=== PATIENT | male | born 1995 | race Caucasian/White ===

== ENCOUNTER → 2020-04-28 10:50 | Outpatient (CLI) | payer BC, SELFPAY ==
--- NOTE | ~2020-04-28 | MR_ITS ---
EXAMINATION: MR knee LT wo con DATE: 04/28/2020 11:33 INDICATION: Medial left knee pain. TECHNIQUE: Magnetic resonance imaging (MRI) of the left knee was performed without intravenous contra st. Sequences included axial PD-weighted FS FSE, coronal PD-weighted FSE and PD-weighted FS FSE, sagi ttal PD-weighted FSE, and sagittal T2-weighted FS FSE. COMPARISON: Left knee radiographs 04/23/2020 FINDINGS: Medial compartment: Medial meniscus is normal. Medial compartment cartilage is normal. Lateral compartment: Lateral meniscus is normal. There is deep partial thickness cartilage loss of tibial condyle involvin g the central articular surface. There is shallow partial-thickness cartilage loss of femoral condyle posteriorly. There is a focus of susceptibility artifact adjacent to the posterior femoral cartilage without correlate on the radiographs. Patellofemoral compartment: The patellar cartilage is normal. Trochlear cartilage is normal. Ligaments and tendons: Anterior and posterior cruciate ligaments are normal. Medial collateral ligament and lateral collater al ligament complex are normal. There is mild patellar tendinopathy. Fluid: There is a small knee joint effusion. IMPRESSION: 1. Moderate chondrosis of lateral compartment. 2. Small knee joint effusion. Reviewed, dictated and finalized at location A. T MAKER
== END ==
PROVIDERS: PCP Family Medicine; Visit Provider Nurse Practitioner Family
DX: M25.462 Effusion, left knee (principal); M24.10 Other articular cartilage disorders, unspecified site
CPT/HCPCS: 73721

== ENCOUNTER 2020-10-28 22:55 | Emergency (ER) | payer SELFPAY ==
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
[2020-10-28 22:58] VITALS: BP 117/64; PULSE 121; RESP 18; TEMP 36.7; O2SAT 96
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
--- NOTE | 2020-10-28 23:34 | PC.NURSE ---
short leg ocl splint applied as ordered, crutch training provided
[2020-10-28 23:51] VITALS: BP 134/84; PULSE 67; RESP 16; TEMP 36.3; O2SAT 100
== END 2020-10-28 23:52 | disposition home or self-care (01) ==
PROVIDERS: Emergency Provider Emergency Medicine; PCP Family Medicine
DX: S86.001A Unspecified injury of right Achilles tendon, initial encounter (principal); Z87.891 Personal history of nicotine dependence; V48.4XXA Person boarding or alighting a car injured in noncollision transport accident, initial encounter
CPT/HCPCS: 29515; 73610; 99283

== ENCOUNTER 2020-11-12 09:31 | Outpatient (CLI) | payer OTHER, SELFPAY ==
--- NOTE | ~2020-11-12 | MR_ITS ---
EXAMINATION: MR lower leg RT wo con DATE: 11/12/2020 11:05 INDICATION: Right lower leg injury and pain. TECHNIQUE: Magnetic resonance imaging (MRI) of the right tibia and fibula was performed without intra venous contrast. Sequences included axial, coronal, and sagittal T1-weighted FSE and STIR FSE. COMPARISON: Right knee radiographs 04/23/2020, right ankle radiographs 10/28/2020 FINDINGS: Motion artifact is noted. Bone alignment is normal. No fracture. The musculature is normal. Achilles tendon is normal. There is subcutaneous edema in the distal lower leg and ankle. IMPRESSION: 1. Subcutaneous edema in the distal lower leg and ankle. No fracture. Reviewed, dictated and finalized at location A.
== END 2020-11-12 09:32 | disposition home or self-care (01) ==
LOC: ANHIMG 09:32
PROVIDERS: PCP Family Medicine; Visit Provider Nurse Practitioner Family
DX: S89.91XA Unspecified injury of right lower leg, initial encounter (principal); M25.571 Pain in right ankle and joints of right foot; M79.89 Other specified soft tissue disorders
CPT/HCPCS: 73718